=== PATIENT | female | born 1950 ===

== ENCOUNTER 2025-04-16 10:11 | Outpatient (CLI) | payer MEDICARE, SELFPAY ==
--- NOTE | 2025-04-16 08:50 | DI.RAD_ITS ---
Exam(s) XR KNEE RT 3V AP,LAT,ERLINDA EXAM: XR KNEE RT 3V AP,LAT,ERLINDA CLINICAL HISTORY: eval R knee pain. TECHNIQUE: 2D digital imaging was performed. COMPARISON: No exams were available for comparison FINDINGS: 3 views No evidence of fracture but there is a joint effusion noted. There is moderate narrowing of the medial compartment. Lateral compartment exhibits normal height. No prominent degenerative changes noted in the patellofemoral compartment. Bone density is age-appropriate. No osseous lesions. IMPRESSION: Degenerative changes in the medial compartment. Joint effusion also noted. This may be related to the degenerative changes or related to additional internal derangement. DATA REPOSITORY: RADIATION DOSE DELIVERED:
== END 2025-04-16 10:12 | disposition home or self-care (01) ==
LOC: DIORS 10:12
PROVIDERS: Visit Provider Student in an Organized Health Care Education/Training Program
DX: M25.561 Pain in right knee (principal)
CPT/HCPCS: 99203; 73562

== ENCOUNTER → 2025-07-26 09:57 | Outpatient (BNVA) | payer MEDICARE, SELFPAY | PROVIDERS: Visit Provider Student in an Organized Health Care Education/Training Program | DX: M17.11 Unilateral primary osteoarthritis, right knee (principal) | CPT/HCPCS: 99214 ==

== ENCOUNTER 2025-07-31 13:48 | Outpatient (CLI) | payer MEDICARE, SELFPAY ==
--- NOTE | 2025-07-31 10:30 | DI.RAD_ITS ---
Exam(s) XR STANDING ALIGNMENT EXAM: XR STANDING ALIGNMENT CLINICAL HISTORY: surgical planning. TECHNIQUE: 2D digital imaging was performed. Standing AP views were performed from the pelvis through the ankles. COMPARISON: CR XR KNEE RT 3V AP,LAT,ERLINDA from 04/16/2025 FINDINGS: BONES: No acute fracture is present. No bony destructive lesion is seen. Leg length discrepancy: No significant overall leg length discrepancy. JOINTS: Knees: Moderate narrowing of the right medial femoral tibial joint space. The left knee joint spaces are maintained. The ankle joints show mild degenerative changes. The hip joints are unremarkable. SOFT TISSUE: Normal. 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 No significant leg length discrepancy. DATA REPOSITORY: RADIATION DOSE DELIVERED:
== END 2025-07-31 13:49 | disposition home or self-care (01) ==
LOC: DIORS 13:48
PROVIDERS: Visit Provider Student in an Organized Health Care Education/Training Program
DX: M17.11 Unilateral primary osteoarthritis, right knee (principal)
CPT/HCPCS: 99214; 77073